=== PATIENT | male | born 1955 | race Hispanic/Latino ===

== ENCOUNTER 2019-10-16 05:48 | Day surgery (SDC) | payer OTHER ==
[2019-10-13 09:50] LABS: BASOPHILS % (AUTO) 0.7 % (0.0-5.0); HEMATOCRIT 47.1 % (42-54); LYMPHOCYTES % (AUTO) 24.6 % (21.0-51.0); MEAN CORPUSCULAR HEMOGLOBIN 32.9 pg (27.0-33.0); MEAN CORPUSCULAR HGB CONC 34.4 g/dL (32.0-36.0); MEAN CORPUSCULAR VOLUME 95.5 fL (79-99); MONOCYTES % (AUTO) 5.3 % (3.0-13.0); NEUTROPHILS % (AUTO) 67.1 % (40.0-77.0); PLATELET COUNT (AUTO) 184 K/uL (130-400); RED BLOOD CELL COUNT(AUTO) 4.93 MIL/uL (4.50-6.20); RED CELL DISTRIBUTION WIDTH 13.3 % (11.0-15.5); WHITE BLOOD COUNT (AUTO) 10.6 K/uL (4.8-10.8)
[2019-10-15 12:01] VITALS: BP 137/76
--- NOTE | 2019-10-15 13:49 | NUR ---
REPORTED TO DR PEARCE PATIENT TOOK IBUPROFEN 400MG THIS AM (10/15/19); OK TO PROCEED TO SURGERY PER DR PEARCE
[2019-10-16] VITALS (16 sets, daily range): BP systolic 110–138; BP diastolic 62–89
[~2019-10-16] VITALS: Ht 172.7 cm; Wt 81.2 kg
[2019-10-16] MEDS: CEFAZOLIN SODIUM 1 GM VIAL IVP SCH ×2 (05:00→07:55)
[~2019-10-16 05:48] MED LIST: CETI10TA57 PO; HYDR-4068 PO; IBUP-2784 PO; METO-408 PO; ROSU10TA28 PO; TRAZ-185 PO
[2019-10-16] MEDS ORDERED: LACTATED RINGERS 1000ML 1,000 ML IV ONE (06:35)
[2019-10-16] MEDS ORDERED: TAMS-1 PO (06:56)
[2019-10-16] MEDS ORDERED: LIDOCAINE PF 2% 5ML ABBOJECT ONE (07:10)
[2019-10-16] MEDS ORDERED: SUCCINYLCHOLINE CHLORIDE 20 MG/ML 10 ML VIAL ONE (07:10)
[2019-10-16] MEDS ORDERED: ONDANSETRON HCL 4 MG/2 ML VIAL ONE (07:11)
[2019-10-16] MEDS ORDERED: FENTANYL CITRATE PF 50 MCG/1 ML 2ML VIAL ONE ×2 (07:11→08:23)
[2019-10-16] MEDS ORDERED: ROCURONIUM 10MG/1ML SYR 10 MG/ML ML ONE (07:11)
[2019-10-16] MEDS ORDERED: MIDAZOLAM HCL 1 MG/ML 2ML VIAL ONE (07:11)
[2019-10-16] MEDS ORDERED: PROPOFOL 10 MG/ML 20ML VIAL IV ONE (07:11)
[2019-10-16] MEDS ORDERED: DEXAMETHASONE SOD PHOSPHATE 10MG/ML 1ML VIAL ONE (07:12)
[2019-10-16] MEDS ORDERED: GLYCOPYRROLATE 1 MG/5 ML SYRINGE ONE (08:10)
[2019-10-16] MEDS ORDERED: NEOSTIGMINE 5MG/5ML SYR IV ONE (08:33)
[2019-10-16] MEDS ORDERED: CEPH500B PO (08:54)
[2019-10-16] MEDS ORDERED: IBUP-2070 PO (08:54)
[2019-10-16] MEDS ORDERED: MEPERIDINE-PF 25 MG/ML SYG ONE (08:55)
--- NOTE | 2019-10-16 09:40 | NUR ---
POST OP RECEIVED PT AND REPORT FROM KIMMY RN FROM PACU. PT IN NO DISTRESS. WILL CONTINUE TO MONITOR. [facility]
--- NOTE | 2019-10-16 10:15 | NUR ---
DISCHARGE PT AND FRIEND GIVEN DISCHARGE INSTRUCTIONS, BOTH VOICED UNDERSTANDING. PT TAKEN OUT VIA W/C BY KAREN JACKSON. PT TOOK CRUTCHES AND ICE PACK
== END 2019-10-16 10:15 | disposition home or self-care (01) ==
LOC: DAH 05:48
PROVIDERS: ATTEND Orthopaedic Surgery
DX: S83.241A Other tear of medial meniscus, current injury, right knee, initial encounter (principal); G89.29 Other chronic pain; I10 Essential (primary) hypertension; E78.5 Hyperlipidemia, unspecified; G47.00 Insomnia, unspecified; F41.9 Anxiety disorder, unspecified; F32.9 Major depressive disorder, single episode, unspecified; K21.9 Gastro-esophageal reflux disease without esophagitis; G47.33 Obstructive sleep apnea (adult) (pediatric); F17.210 Nicotine dependence, cigarettes, uncomplicated; X58.XXXA Exposure to other specified factors, initial encounter; Y93.89 Activity, other specified; Y92.89 Other specified places as the place of occurrence of the external cause; Y99.8 Other external cause status
CPT/HCPCS: 29881; 36415; 80048; 85025; A4213; A4215 ×2; A4221 ×2; A4222 ×2; A4223 ×2; A4606; A4649 ×2; A4663 ×2; A4930 ×2; A5120; A6223; J0330; J0690; J1100; J2001; J2175; J2250; J2405; J2704; J2710; J3010 ×2; J3490; J7030; J7120